=== PATIENT | male | born 2005 | race Hispanic/Latino ===

== ENCOUNTER 2024-10-07 10:35 | Emergency (ER) | payer BC ==
[~2024-10-07] VITALS: Ht 170.2 cm; Wt 75.3 kg
[2024-10-07 10:57] VITALS: PULSE 70; RESP 18; TEMP 98.4
[2024-10-07] MEDS: ONDANSETRON HCL INJ 2MG/ML 2ML 2 MG/ML VIAL IV STA (11:20)
[2024-10-07] MEDS: SODIUM CHLORIDE 0.9% 1000ML 1,000 ML IV ONE (11:21)
[2024-10-07] MEDS: KETOROLAC TROMETHAMINE 30 MG/ML VIAL IV STA (11:34)
[2024-10-07] MEDS ORDERED: KETOROLAC TROME10 MG PO (12:25)
[2024-10-07] MEDS ORDERED: FLOMAX0.4 MG PO (12:25)
[2024-10-07] MEDS ORDERED: ONDANSETRON ODT4 MG PO (12:25)
[2024-10-07 12:39] VITALS: BP 136/84; PULSE 63; RESP 18; O2SAT 97
== END 2024-10-07 12:40 | disposition home or self-care (01) ==
LOC: FSED 10:52
DX: R11.2 Nausea with vomiting, unspecified (principal); N13.2 Hydronephrosis with renal and ureteral calculous obstruction; K76.0 Fatty (change of) liver, not elsewhere classified
CPT/HCPCS: 74176; 80048; 80076; 81003; 85025; 99283; J1885; J2405; J7030